=== PATIENT | female | born 1985 | race African-American/Black ===

== ENCOUNTER 2016-11-13 13:37 | Observation (INO) | payer MEDICAID ==
[~2016-11-13] VITALS: Ht 167.6 cm; Wt 98.0 kg
[2016-11-13] MEDS ORDERED: PNV1TABL76 PO (14:11)
[2016-11-13] MEDS ORDERED: FERR325T6 PO (14:12)
[2016-11-13] MEDS ORDERED: ACETAMINOPHEN 500MG TABLET PO SCH (14:15)
[2016-11-13] MEDS: LACTATED RINGERS 1,000 ML IV SCH ×2 (14:57→16:23)
[2016-11-13] MEDS ORDERED: ONDANSETRON HCL 4MG/2ML VIAL IV NR (15:00)
[2016-11-13 15:12] LABS: CLARITY URINE TURBID (CLEAR); COLOR URINE YELLOW (YELLOW); GLUCOSE URINE NEGATIVE (NEGATIVE); KETONES URINE 1+ (NEGATIVE); LEUKOCYTE ESTERASE URINE 2+ (NEGATIVE); NITRITE URINE POSITIVE (NEGATIVE); OCCULT BLOOD URINE 2+ (NEGATIVE); PH URINE 6.5 (4.5-8.0); PROTEIN URINE 3+ (NEGATIVE); SPECIFIC GRAVITY URINE 1.019 (1.005-1.030)
[2016-11-13] MEDS ORDERED: CEFAZOLIN 2,000 MG in DEXT 5% WATER 100 ML IV SCH (16:00)
== END 2016-11-13 19:00 | disposition left against medical advice (07) ==
LOC: L&D 13:37
PROVIDERS: ADMIT Obstetrics & Gynecology; ATTEND Obstetrics & Gynecology
DX: Z34.90 Encounter for supervision of normal pregnancy, unspecified, unspecified trimester (principal)
CPT/HCPCS: 81001; 96361; 96365; 99281; G0378; J0690; J2405; J7120; J7060

== ENCOUNTER 2016-12-02 15:19 | Emergency (ER) | payer MEDICAID, OTHER ==
[~2016-12-02] VITALS: Ht 167.6 cm; Wt 91.0 kg
[~2016-12-02 15:19] MED LIST: FERR325T6 PO; PNV1TABL76 PO
[2016-12-02] MEDS ORDERED: ONDANSETRON HCL 4MG/2ML VIAL IV ONE ×2 (16:15→18:15)
[2016-12-02] MEDS ORDERED: FENTANYL CITRATE/PF 50MCG/ML 2ML VIAL IV ONE ×2 (16:15→18:45)
[2016-12-02] MEDS ORDERED: SODIUM CHLORIDE 0.9% 1000ML BAG (SEPSIS BOLUS) IV ONE (16:15)
[2016-12-02 16:40] LABS: CHLORIDE 106 mEq/L (98-107)
[2016-12-02 16:41] LABS: PROTHROMBIN TIME 10.6 sec (9.4-11.6)
[2016-12-02 16:47] LABS: BASOPHILS % 0.5 % (0.0-2.0); EOSINOPHILS % 2.1 % (0.0-5.0); HEMATOCRIT. 36.2 % (36.0-48.0); LYMPHOCYTES % 16.2 % (20.0-50.0); MEAN CORPUSCULAR HEMOGLOBIN 27.2 pg (28.0-32.0); MEAN CORPUSCULAR VOLUME 82.4 fL (81.0-99.0); MONOCYTES % 6.2 % (2.0-8.0); PLATELET 347 x1000/uL (130-400); RED BLOOD CELL COUNT 4.39 mill/uL (4.2-5.4); RED CELL DISTRIBUTION WIDTH 13.3 % (11.6-14.6)
[2016-12-02 16:49] LABS: CARBON DIOXIDE 29 mEq/L (21-32)
[2016-12-02 17:13] LABS: CLARITY URINE CLEAR (CLEAR); COLOR URINE YELLOW (YELLOW); GLUCOSE URINE NEGATIVE (NEGATIVE); KETONES URINE NEGATIVE (NEGATIVE); LEUKOCYTE ESTERASE URINE 1+ (NEGATIVE); NITRITE URINE NEGATIVE (NEGATIVE); OCCULT BLOOD URINE TRACE (NEGATIVE); PROTEIN URINE 3+ (NEGATIVE); SPECIFIC GRAVITY URINE 1.011 (1.005-1.030)
[2016-12-02] MEDS ORDERED: KETOROLAC 30MG/ML VIAL IV ONE (18:15)
[2016-12-02] MEDS ORDERED: MORPHINE SULFATE 4 MG/ML CPJ (NOT FOR IM USE) IV ONE (18:15)
[2016-12-02 20:38] VITALS: BP 142/79
== END 2016-12-02 20:39 | disposition home or self-care (01) ==
LOC: ER 15:24 → CANBEDREQ 20:20 → ER 20:39
DX: R10.9 Unspecified abdominal pain (principal); Z43.6 Encounter for attention to other artificial openings of urinary tract; Z93.6 Other artificial openings of urinary tract status; Z98.51 Tubal ligation status; Z98.890 Other specified postprocedural states; Z88.6 Allergy status to analgesic agent
CPT/HCPCS: 36415; 74176; 80053; 81001; 81025; 83605; 85025; 85610; 87040; 87086; 87106; 93005; 96361; 96374; 96375; 96376; 99285; J1885; J2405; J3010; J7030; Z7610

== ENCOUNTER 2018-08-31 11:17 | Observation (INO) | payer MEDICAID ==
[~2018-08-31] VITALS: Ht 167.6 cm; Wt 87.1 kg
[2018-08-31 13:07] LABS: BASOPHILS % 0.1 % (0.0-2.0); EOSINOPHILS % 0.8 % (0.0-5.0); HEMATOCRIT. 38.6 % (36.0-48.0); HEMOGLOBIN. 13.5 g/dL (12.0-16.0); LYMPHOCYTES % 24.2 % (20.0-50.0); MEAN CORPUSCULAR HEMOGLOBIN 31.2 pg (28.0-32.0); MEAN CORPUSCULAR VOLUME 89.1 fL (81.0-99.0); MEAN PLATELET VOLUME 8.3 fl (7.4-10.4); MONOCYTES % 9.1 % (2.0-8.0); NEUTROPHILS % 65.8 % (40.0-76.0); PLATELET 251 x1000/uL (130-400); RED BLOOD CELL COUNT 4.33 mill/uL (4.2-5.4); RED CELL DISTRIBUTION WIDTH 13.4 % (11.6-14.6)
[2018-08-31 13:08] LABS: CLARITY URINE TURBID (CLEAR); COLOR URINE YELLOW (YELLOW); KETONES URINE TRACE (NEGATIVE); LEUKOCYTE ESTERASE URINE 3+ (NEGATIVE); NITRITE URINE NEGATIVE (NEGATIVE); OCCULT BLOOD URINE 2+ (NEGATIVE); PH URINE 6.5 (4.5-8.0); PROTEIN URINE TRACE (NEGATIVE); SPECIFIC GRAVITY URINE 1.014 (1.005-1.030)
[2018-08-31 13:11] LABS: CHLORIDE 106 mEq/L (98-107)
[2018-08-31] MEDS: ACETAMINOPHEN 325MG TABLET PO SCH (13:43)
[2018-08-31] MEDS ORDERED: CEFAZOLIN 2,000 MG in DEXT 5% WATER 100 ML IV STA (15:56)
[2018-08-31] MEDS: NITROFURANTOIN 100MG M/M CAPSULE PO NR (16:27)
[2018-08-31] MEDS: DEXT 5%/LACTATED RINGERS 1,000 ML IV ONE (19:59)
[2018-08-31] MEDS ORDERED: NITROFURANTOIN 100MG M/M CAPSULE PO SCH (21:00)
[2018-08-31] MEDS ORDERED: PREN1TAB78 MT (22:25)
== END 2018-08-31 22:35 | disposition home or self-care (01) ==
LOC: 8 EST LDRP 11:17
PROVIDERS: ADMIT Obstetrics & Gynecology; ATTEND Obstetrics & Gynecology
DX: O99.89 Other specified diseases and conditions complicating pregnancy, childbirth and the puerperium (principal); N13.30 Unspecified hydronephrosis; O23.42 Unspecified infection of urinary tract in pregnancy, second trimester; O26.892 Other specified pregnancy related conditions, second trimester; N35.92 Unspecified urethral stricture, female; N20.9 Urinary calculus, unspecified; Q89.9 Congenital malformation, unspecified; Z3A.25 25 weeks gestation of pregnancy
CPT/HCPCS: 36415; 76770; 80053; 81003; 85025; 87086; G0378; 96360; 96361; 99281

== ENCOUNTER 2022-02-06 07:02 | Emergency (ER) | payer MEDICAID, MEDICARE ==
[~2022-02-06] VITALS: Ht 167.6 cm; Wt 78.4 kg
[~2022-02-06 07:02] MED LIST changes: -FERR325T6 PO; -PNV1TABL76 PO; +PREN1TAB78 MT
[2022-02-06 07:18] VITALS: BP 116/69
== END 2022-02-06 18:49 | disposition left against medical advice (07) ==
LOC: ER 07:02
DX: Z53.21 Procedure and treatment not carried out due to patient leaving prior to being seen by health care provider (principal)
CPT/HCPCS: 93005

== ENCOUNTER 2022-03-09 10:31 | Emergency (ER) | payer MEDICAID, MEDICARE ==
[~2022-03-09] VITALS: Ht 167.6 cm; Wt 74.0 kg
[2022-03-09] MEDS ORDERED: KETOROLAC 15MG/ML VIAL IM ONE (12:45)
[2022-03-09 13:04] VITALS: BP 115/50
[2022-03-09] MEDS ORDERED: NAPR-1176 PO (13:18)
== END 2022-03-09 13:37 | disposition home or self-care (01) ==
LOC: ER 10:31
DX: M25.511 Pain in right shoulder (principal); M54.50 Low back pain, unspecified; M54.2 Cervicalgia; F17.210 Nicotine dependence, cigarettes, uncomplicated; Z90.89 Acquired absence of other organs; Z88.5 Allergy status to narcotic agent; Z88.1 Allergy status to other antibiotic agents; V43.52XA Car driver injured in collision with other type car in traffic accident, initial encounter; Y93.89 Activity, other specified; Y92.488 Other paved roadways as the place of occurrence of the external cause
CPT/HCPCS: 96372; 99283; J1885